=== PATIENT | female | born 1990 | race Caucasian/White ===

== ENCOUNTER 2021-06-12 17:09 | Emergency (ER) | payer OTHER ==
[2021-06-12] MEDS ORDERED: IBUPROFEN 400 MG TABLET (FP) PO ONE ×2 (17:26→17:38)
[2021-06-12 17:49] VITALS: BP 108/73; PULSE 78; TEMP 98.7; BMI 26.6
== END 2021-06-12 19:35 | disposition home or self-care (01) ==
LOC: FER 17:09
DX: S92.355A Nondisplaced fracture of fifth metatarsal bone, left foot, initial encounter for closed fracture (principal); X50.9XXA Other and unspecified overexertion or strenuous movements or postures, initial encounter
CPT/HCPCS: 73560-TC-LT-FY; 73610-TC-LT-FY; 73630-TC-LT; 99283-25